=== PATIENT | female | born 1980 | race Caucasian/White ===

== ENCOUNTER 2017-05-17 07:25 | Emergency (ER) | END 2017-05-17 11:36 | disposition home or self-care (01) ==

== ENCOUNTER 2017-06-21 19:49 | Emergency (ER) | END 2017-06-21 23:39 | disposition home or self-care (01) ==

== ENCOUNTER 2017-12-19 23:00 | Inpatient (IN) | END 2017-12-22 13:30 | disposition home or self-care (01) | DRG 765 ==

== ENCOUNTER 2018-01-03 13:26 | Emergency (ER) | END 2018-01-03 17:06 | disposition home or self-care (01) ==

== ENCOUNTER 2018-01-05 13:55 | Emergency (ER) | END 2018-01-05 16:31 | disposition home or self-care (01) ==

== ENCOUNTER 2018-01-07 21:08 | Inpatient (IN) | END 2018-01-10 19:10 | disposition home or self-care (01) | DRG 776 ==